=== PATIENT | male | born 1965 | race Caucasian/White ===

== ENCOUNTER → 2019-07-12 | Day surgery (SDC) | payer BC ==
[~2019-07-12] MED LIST: BUPIVACAINE HCL 0.5% INJ 30 ML VIAL INJ ONE; CEFAZOLIN SOD 1 GM/NS 50ML 50 ML IV ONE; DEXAMETHASONE SOD PHOS INJ 4 MG/ML VIAL ONE; FENTANYL CITRATE/PF 100MCG/2 ML INJ ONE; LIDOCAINE HCL 1% LOCAL INJ 20 ML VIAL ONE; LIDOCAINE HCL 2% LOCAL INJ 5 ML SDV VIAL INJ ONE; MIDAZOLAM HCL 2 MG/2 ML VIAL ONE; ONDANSETRON HCL INJ 2MG/ML 2ML 2 MG/ML VIAL ONE; PROPOFOL IV EMULSION 10 MG/ML 20 ML VIAL ONE; SEVOFLURANE INHAL SOLN 250 ML PEN BTL ONE
--- NOTE | 2019-07-12 09:59 | Operative Report ---
DATE OF PROCEDURE: 07/12/2019 SURGEON: Gavin Lozoya MD METAL [employer]AYER MACHINED PARTS: Royce Duenas, certified PA. PREOPERATIVE DIAGNOSIS: Right trigger thumb. POSTOPERATIVE DIAGNOSIS: Right trigger thumb. PROCEDURE: Release right trigger thumb. INDICATIONS: The patient is a 53-year-old gentleman, who has clinic signs and symptoms consistent with stenosing tenosynovitis of his right thumb. He has failed conservative management and would like to proceed with a surgical release. The risks and benefits were explained. All of his questions were answered. He stated he understood and wished to proceed. PROCEDURE IN DETAIL: The patient was brought to the operating room and placed under general anesthetic. He received prophylactic antibiotics in the holding area. His right upper extremity was prepped and draped in a sterile manner. A preoperative time-out was performed. The extremity was exsanguinated and a proximal tourniquet was briefly inflated to 250 mmHg. An incision was made at the base of the volar aspect of the right thumb. The vicky was carefully exposed. Care was taken to avoid any injury to the neurovascular bundle. A 15-blade surgical knife was used to release the tendon. This was completed with a pair of tenotomy scissors. The tendon was retrieved from the wound and put through excursion. There was no further stenosing tenosynovitis. The wound was irrigated and closed with two interrupted nylon stitches. A sterile bandage was applied. He was extubated and transported to the recovery room in stable condition. There was no blood loss and all needle and sponge counts were correct. Gavin Lozoya MD DR/CHANELLE /[id number]
[2019-07-12 10:13] VITALS: BP 144/81
== END | disposition home or self-care (01) ==
LOC: OR 07:10
PROVIDERS: ATTEND Specialist
DX: M65.311 Trigger thumb, right thumb (principal); K21.9 Gastro-esophageal reflux disease without esophagitis; Z72.0 Tobacco use; Z01.810 Encounter for preprocedural cardiovascular examination; Z01.812 Encounter for preprocedural laboratory examination; Z11.59 Encounter for screening for other viral diseases
CPT/HCPCS: 26055; 87635; 93005; J0690; J1100; J2001 ×2; J2250; J2405; J2704; J3010